=== PATIENT | female | born 1990 | race Caucasian/White ===

== ENCOUNTER 2016-11-04 05:00 | Inpatient (IN) | payer OTHER ==
[~2016-11-04 05:00] MED LIST: CITRIC ACID/SODIUM CITRATE SOL PO SCH; SODIUM CHLORIDE 0.9% 50 ML 25 ML IV PRN
[2016-11-04] MEDS: SODIUM CHLORIDE 0.9% FLUSH 10 ML SOL IV PRN ×3 (05:10→18:51)
[2016-11-04] MEDS: LACTATED RINGERS 1,000 ML IV SCH ×4 (05:10→19:13)
[2016-11-04] MEDS ORDERED: MORPHINE SULFATE 0.5 MG/ML SOL ONE (06:22)
[2016-11-04] MEDS ORDERED: OXYTOCIN 10000 MU/ML SOL ONE ×2 (06:22)
[2016-11-04] MEDS ORDERED: CEFAZOLIN SODIUM 1 GM PDS ONE (06:22)
[2016-11-04] MEDS ORDERED: EPHEDRINE SULFATE 50 MG/ML SOL ONE (06:54)
[2016-11-04] MEDS ORDERED: ONDANSETRON HCL 4 MG/2 ML SOL ONE (06:54)
[2016-11-04] MEDS ORDERED: LACTATED RINGERS 1,000 ML with OXYTOCIN 10000 MU/ML 20 MU IV ONE (07:05)
[2016-11-04] MEDS ORDERED: KETOROLAC TROMETHAMINE 30 MG/ML SOL IV PRN (07:48)
[2016-11-04] MEDS ORDERED: BENZOCAINE/MENTHOL 1 SPR TOP PRN (07:48)
[2016-11-04] MEDS ORDERED: WITCH HAZEL 1 EA PAD TOP PRN (07:48)
[2016-11-04] MEDS ORDERED: FLEET ENEMA PR PRN (07:48)
[2016-11-04] MEDS ORDERED: TEMAZEPAM 15MG 15 MG CAP PO PRN (07:48)
[2016-11-04] MEDS ORDERED: ONDANSETRON HCL 4 MG/2 ML SOL IV PRN (07:48)
[2016-11-04] MEDS ORDERED: BISACODYL 10 MG SUP PR PRN (07:48)
[2016-11-04] MEDS: APAP/HYDROCODONE 325/5 TAB PO PRN ×3 (09:33→23:53)
[2016-11-04] MEDS: DIPHENHYDRAMINE 25 MG CAP PO PRN ×2 (10:08→14:45)
[2016-11-04] MEDS: CEFAZOLIN (PREMIX) 1 GM 1 GM/50 ML SOL IV SCH ×2 (10:55→12:41)
[2016-11-04] MEDS: DOCUSATE SODIUM 100 MG SGL PO SCH ×2 (12:13→21:08)
[2016-11-04] MEDS ORDERED: CEFAZOLIN (PREMIX) 1 GM 1 GM/50 ML SOL IV ONE (12:19)
[2016-11-04] MEDS: METHYLERGONOVINE MALEATE 0.2 MG TAB PO PRN ×3 (12:53→23:53)
[2016-11-05] MEDS: APAP/HYDROCODONE 325/5 TAB PO PRN ×5 (04:06→21:04)
[2016-11-05] MEDS: METHYLERGONOVINE MALEATE 0.2 MG TAB PO PRN (06:40)
[2016-11-05] MEDS: LACTATED RINGERS 1,000 ML IV SCH ×2 (07:00→19:34)
[2016-11-05] MEDS: IBUPROFEN 600 MG TAB PO PRN ×2 (07:46→15:44)
[2016-11-05] MEDS: DIPHENHYDRAMINE 25 MG CAP PO PRN (07:54)
[2016-11-05] MEDS: FOLIC ACID 1 MG TAB PO SCH (08:04)
[2016-11-05] MEDS: DOCUSATE SODIUM 100 MG SGL PO SCH ×2 (08:04→21:04)
[2016-11-05] MEDS: MULTIVITAMIN2 1 EA TAB PO SCH (08:04)
[2016-11-05] MEDS: FERROUS SULFATE 325 MG TAB PO SCH (21:04)
[2016-11-06] MEDS: APAP/HYDROCODONE 325/5 TAB PO PRN ×4 (01:16→21:57)
[2016-11-06] MEDS: IBUPROFEN 600 MG TAB PO PRN ×3 (01:16→18:21)
[2016-11-06] MEDS: MULTIVITAMIN2 1 EA TAB PO SCH (08:30)
[2016-11-06] MEDS: DOCUSATE SODIUM 100 MG SGL PO SCH ×2 (08:30→21:57)
[2016-11-06] MEDS: FERROUS SULFATE 325 MG TAB PO SCH (08:31)
[2016-11-06] MEDS: FOLIC ACID 1 MG TAB PO SCH (08:31)
[2016-11-07] MEDS: APAP/HYDROCODONE 325/5 TAB PO PRN (06:11)
[2016-11-07] MEDS: IBUPROFEN 600 MG TAB PO PRN (06:12)
[2016-11-07 06:22] VITALS: BP 117/78; PULSE 75; RESP 20; TEMP 98.4; O2SAT 100
[2016-11-07] MEDS: DOCUSATE SODIUM 100 MG SGL PO SCH (09:12)
[2016-11-07] MEDS: FERROUS SULFATE 325 MG TAB PO SCH (09:12)
[2016-11-07] MEDS: MULTIVITAMIN2 1 EA TAB PO SCH (09:12)
[2016-11-07] MEDS: FOLIC ACID 1 MG TAB PO SCH (09:12)
== END 2016-11-07 13:05 | disposition home or self-care (01) | DRG 766 ==
LOC: OB 05:00 → EDSTATUS 05:30 → OB 11-05 19:50
PROVIDERS: ADMIT Family Medicine; ATTEND Family Medicine
PROC: 0UB70ZZ Excision of Bilateral Fallopian Tubes, Open Approach (ICD-10-PCS; 2016-11-04)
PROC: 10D00Z1 Extraction of Products of Conception, Low, Open Approach (ICD-10-PCS; principal; 2016-11-04 06:30)
DX: O34.219 Maternal care for unspecified type scar from previous cesarean delivery (principal); N80.9 Endometriosis, unspecified; Z3A.39 39 weeks gestation of pregnancy; Z30.2 Encounter for sterilization; Z37.0 Single live birth
CPT/HCPCS: 36415; 59025; 85018; 99070; J0690; J1885; J2274; J2405; J2590